=== PATIENT | male | born 1955 | race Caucasian/White ===

== ENCOUNTER 2016-12-10 14:51 | Inpatient (IN) | payer MEDICARE ==
[~2016-12-10] VITALS: Ht 200.7 cm; Wt 101.0 kg
[2016-12-10] VITALS (7 sets, daily range): BP systolic 88–116; BP diastolic 54–67; PULSE 70–92; RESP 20–22; TEMP 97.8–102.4; O2SAT 9–99
[~2016-12-10 14:51] MED LIST: APIX5TAB PO; BUME2TAB PO; CENTTAB PO; CEPH-460 PO; DIAZ10TA PO; DIGO0.12 PO; FERR1TAB58 PO; GABA300C5 PO; LACT10SO27; METO5TAB3 PO; MILKSUS PO; OXYC15TA PO; POTA-243 PO; SPIR25TA PO; STOO100C; ZOFR4TAB3 SL
--- NOTE | 2016-12-10 15:02 | PD ---
HPI Chief Complaint: altered mental status Time Seen by Provider: 15:02 Travel History International Travel<30 days: No Contact w/Intl Traveler<30days: No Traveled to known affect area: No History of Present Illness HPI 60-year-old male came to the emergency room brought by EMS for confusion/ altered mental status. Patient being confused is unable to give the exact onset of his symptoms. He is not a reliable historian. His GCS is 13. Patient is denying of any pain anywhere. His temperature was 102.5 rectally. I have very limited history at this point. He was found by the police in a parking lot acting confused. [facility] Past Medical History Narrative Medical List of his past medical, surgical, social and family history is reviewed from the nursing note. Arthritis: Yes Anxiety: Yes Depression: Yes Heart Rhythm Problems: Yes (chronic A trial fibrillation) Cardiovascular Problems: Yes Congestive Heart Failure: Yes COPD: Yes Cerebrovascular Accident: Yes (SAH, SDH this visit) Diminished Hearing: No Gastrointestinal Disorders: Yes (polyp, GI bleed r/t polyp removal) GERD: Yes Headaches: Yes Hypertension: Yes Musculoskeletal: Yes (degenerative joint disease, chronic knee pain) Myocardial Infarction: Yes Pneumonia: Yes Seizures: Yes Past Surgical History Abdominal Surgery: Yes (umbilical hernia repair, polyp removal) Cardiac Surgery: No Ear Surgery: No Endocrine Surgery: No Eye Surgery: No Genitourinary Surgery: No Gynecologic Surgery: No Oral Surgery: No Pacemaker: No Thoracic Surgery: No Social History Alcohol Use: No (DENIES) Tobacco Use: Yes Substance Use: No Allergies-Medications (Allergen,Severity, Reaction): Coded Allergies: diphenhydramine (Verified Allergy, Severe, HIVES, 12/10/16) PT STATES HE IS NOT ALLERGIC benazepril (Verified Allergy, Unknown, 12/10/16) UNKNOWN captopril (Verified Allergy, Unknown, 12/10/16) enalaprilat (Verified Allergy, Unknown, 12/10/16) fosinopril (Verified Allergy, Unknown, 12/10/16) lisinopril (Verified Allergy, Unknown, 12/10/16) naproxen (Verified Allergy, Unknown, 12/10/16) quinapril (Verified Allergy, Unknown, 12/10/16) strawberry (Verified Allergy, Unknown, 12/10/16) morphine (Verified Adverse Reaction, Intermediate, N/V, 12/10/16) pentazocine (Verified Adverse Reaction, Intermediate, N/V, 12/10/16) caffeine (Verified Adverse Reaction, Unknown, 12/10/16) Comments List of his allergies reviewed from the nursing note. Reported Meds & Prescriptions Reported Meds & Active Scripts Active Reported Spironolactone 25 Mg Tab 25 Mg PO DAILY Oxycodone (Oxycodone HCl) 15 Mg Tab 15 Mg PO Q6H PRN Metolazone 5 Mg Tab 5 Mg PO MON/WED/THU Klor-Con 10 (Potassium Chloride) 10 Meq Tab 10 Meq PO BID Gabapentin 300 Mg Cap 300 Mg PO BID Eliquis (Apixaban) 5 Mg Tab 5 Mg PO BID Digoxin 0.125 Mg Tab 0.125 Mg PO DAILY Diazepam 10 Mg Tab 10 Mg PO TID PRN Bumetanide 2 Mg Tab 2 Mg PO BID Narrative Medication List of his home medications reviewed from the nursing note. Review of Systems ROS Limitations: Altered Mental Status Except as stated in HPI: all other systems reviewed are Neg General / Constitutional: Positive: Fever Neurologic: Positive: Change in Mentation Physical Exam Narrative GENERAL: Awake, confused, moderate distress SKIN: Focused skin assessment warm/dry. HEAD: Atraumatic. Normocephalic. EYES: Pupils equal and round. No scleral icterus. No injection or drainage. ENT: No nasal bleeding or discharge. Dry mucous membrane and coated tongue NECK: Trachea midline. No JVD. CARDIOVASCULAR: Regular rate and rhythm. No murmur appreciated. RESPIRATORY: No accessory muscle use. Clear to auscultation. Breath sounds equal bilaterally. GASTROINTESTINAL: Abdomen soft, non-tender, nondistended. Hepatic and splenic margins not palpable. MUSCULOSKELETAL: No obvious deformities. No clubbing. No cyanosis. No edema. NEUROLOGICAL: Awake and confused, GCS of 13. No obvious cranial nerve deficits. Motor grossly within normal limits. Normal speech. PSYCHIATRIC: Appropriate mood and affect; insight and judgment normal. Data Data Last Documented VS Vital Signs Date Time Temp Pulse Resp B/P (MAP) Pulse Ox O2 Delivery O2 Flow Rate FiO2 12/10/16 16:32 20 12/10/16 16:31 102.0 70 100/61 (74) 98 Nasal Cannula 3.00 Orders Orders Electrocardiogram (12/10/16 ) Complete Blood Count With Diff (12/10/16 15:18) Comprehensive Metabolic Panel (12/10/16 15:18) Prothrombin Time / Inr (Pt) (12/10/16 15:18) Lactic Acid Sepsis Protocol (12/10/16 15:18) Urinalysis - C+S If Indicated (12/10/16 15:18) Blood Culture (12/10/16 15:18) Chest, Single Ap (12/10/16 15:18) Blood Glucose (12/10/16 15:18) Ecg Monitoring (12/10/16:18) Iv Access Insert/Monitor (12/10/16 15:18) Oximetry (12/10/16 15:18) Oxygen Administration (12/10/16 15:18) Ct Brain W/O Iv Contrast(Rout) (12/10/16 15:18) Piperacil-Tazo 4.5 Gm Premix (Zosyn 4.5 (12/10/16 15:18) Vancomycin Inj (Vancomycin Inj) (12/10/16 15:18) Acetaminophen Supp (Tylenol Supp) (12/10/16 15:30) Sodium Chlor 0.9% 1000 Ml Inj (Ns 1000 M (12/10/16 15:30) Sodium Chlor 0.9% 1000 Ml Inj (Ns 1000 M (12/10/16 15:30) Sodium Chlor 0.9% 1000 Ml Inj (Ns 1000 M (12/10/16 15:30) Digoxin (12/10/16 15:26) Troponin I (12/10/16 15:27) Urinary Catheter Insert/Apply (12/10/16 16:03) Apixaban (Eliquis) (12/10/16 21:00) Bumetanide (Bumetanide) (12/10/16 21:00) Digoxin (Lanoxin) (12/11/16 09:00) Potassium Chloride (Kcl) (12/10/16 21:00) Spironolactone (Aldactone) (12/11/16 09:00) Admit Order (Ed Use Only) (12/10/16 17:14) Metolazone (Zaroxolyn) (12/12/16 09:00) Labs Laboratory Tests Test 12/10/16 15:34 12/10/16 15:35 12/10/16 15:50 White Blood Count 8.4 TH/MM3 Red Blood Count 3.76 MIL/MM3 Hemoglobin 12.2 GM/DL Hematocrit 36.4 % Mean Corpuscular Volume 96.8 FL Mean Corpuscular Hemoglobin 32.6 PG Mean Corpuscular Hemoglobin Concent 33.7 % Red Cell Distribution Width 14.1 % Platelet Count 163 TH/MM3 Mean Platelet Volume 8.7 FL Neutrophils (%) (Auto) 82.0 % Lymphocytes (%) (Auto) 8.9 % Monocytes (%) (Auto) 6.8 % Eosinophils (%) (Auto) 2.0 % Basophils (%) (Auto) 0.3 % Neutrophils # (Auto) 6.9 TH/MM3 Lymphocytes # (Auto) 0.7 TH/MM3 Monocytes # (Auto) 0.6 TH/MM3 Eosinophils # (Auto) 0.2 TH/MM3 Basophils # (Auto) 0.0 TH/MM3 CBC Comment DIFF FINAL Differential Comment Prothrombin Time 12.8 SEC Prothromb Time International Ratio 1.2 RATIO Blood Urea Nitrogen 22 MG/DL Creatinine 1.15 MG/DL Random Glucose 106 MG/DL Total Protein 6.9 GM/DL Albumin 3.1 GM/DL Calcium Level 8.3 MG/DL Alkaline Phosphatase 97 U/L Aspartate Amino Transf (AST/SGOT) 21 U/L Alanine Aminotransferase (ALT/SGPT) 20 U/L Total Bilirubin 0.7 MG/DL Sodium Level 139 MEQ/L Potassium Level 3.6 MEQ/L Chloride Level 100 MEQ/L Carbon Dioxide Level 33.1 MEQ/L Anion Gap 6 MEQ/L Estimat Glomerular Filtration Rate 65 ML/MIN Troponin I 0.02 NG/ML B-Type Natriuretic Peptide 186 PG/ML Digoxin Level 1.2 NG/ML Lactic Acid Level 2.1 mmol/L Urine Color YELLOW Urine Turbidity CLEAR Urine pH 6.0 Urine Specific [place] 1.008 Urine Protein NEG mg/dL Urine Glucose (UA) NEG mg/dL Urine Ketones NEG mg/dL Urine Occult Blood NEG Urine Nitrite NEG Urine Bilirubin NEG Urine Urobilinogen LESS THAN 2.0 MG/DL Urine Leukocyte Esterase NEG Urine WBC 4 /hpf Urine Hyaline Casts 7 /lpf Microscopic Urinalysis Comment CATH-CULT NOT IND MDM Medical Decision Making Medical Screen Exam Complete: Yes Emergency Medical Condition: Yes Medical Record Reviewed: Yes Interpretation(s) Twelve-lead EKG was reviewed by me. Atrial fibrillation, right axis deviation, lateral and inferior T-wave inversion and depression, minimal high lateral ST elevation. Rate of 95 bpm. Differential Diagnosis Sepsis, UTI, pneumonia, dehydration Narrative Course 5 PM blood test results of back. Patient has left shift and his CBC. Lactic acid is slightly elevated. Chest x-ray suggestive of by basilar infiltrate. Patient was started on antibiotic and fluid as per the sepsis protocol. I've admitted him to the hospitalist at this point. Critical Care Narrative Aggregate critical care time was 45 minutes. Time to perform other separately billable procedures was not included in the critical care time. My time did not include minutes spent treating any other patients simultaneously or on activities that did not directly contribute to the patient's treatment. The services I provided to this patient were to treat and/or prevent clinically significant deterioration that could result in: Sepsis, sepsis protocol, pneumonia I provided critical care services requiring my management, as noted below: Chart data review, documentation time, medication orders and management, vital sign assessments/reviewing monitor data, ordering and reviewing lab tests, ordering and interpreting/reviewing x-rays and diagnostic studies, care of the patient and discussion of the patient with the admitting physicians. Sepsis Criteria SIRS Criteria (2 or more): Temp > 100.9 or < 96.8 Severe Sepsis (+one): Lactate >2 Diagnosis Primary Impression: Sepsis Qualified Codes: A41.9 - Sepsis, unspecified organism Additional Impression: Pneumonia Qualified Codes: J18.9 - Pneumonia, unspecified organism Admitting Information Admitting Physician Requests: Floyd Lee MD Dec 10, 2016 15:02
[2016-12-10] MEDS ORDERED: VANCOMYCIN INJ 1,000 MG in SODIUM CHLOR 0.9% 250 ML INJ 250 ML IV STA (15:18)
[2016-12-10] MEDS ORDERED: PIPERACIL-TAZO 4.5 GM PREMIX 100 ML IV STA (15:18)
[2016-12-10] MEDS ORDERED: ACETAMINOPHEN 650 MG SUPP RECTAL ONE (15:30)
[2016-12-10] MEDS ORDERED: SODIUM CHLOR 0.9% 1000 ML INJ 1,000 ML IV ONE ×3 (15:30)
[2016-12-10 15:49] LABS: AUTOMATED NEUTROPHIL # 6.9 TH/MM3 (1.8-7.7); BASOPHIL % 0.3 % (0.0-2.0); EOSINOPHIL # 0.2 TH/MM3 (0-0.4); HEMATOCRIT 36.4 % (39.0-51.0); HEMO FLAGS DIFF FINAL; LYMPH % 8.9 % (9.0-44.0); LYMPHOCYTE # 0.7 TH/MM3 (1.0-4.8); MEAN CELL VOLUME 96.8 FL (80.0-100.0); MEAN CORPUSCULAR HEMOGLOBIN 32.6 PG (27.0-34.0); MEAN CORPUSCULAR HGB CONC 33.7 % (32.0-36.0); MONO % 6.8 % (0.0-8.0); PLATELET COUNT 163 TH/MM3 (150-450); RED BLOOD COUNT 3.76 MIL/MM3 (4.50-5.90); RED CELL DISTRIBUTION WIDTH 14.1 % (11.6-17.2); WHITE BLOOD COUNT 8.4 TH/MM3 (4.0-11.0)
[2016-12-10 15:58] LABS: INTERNATIONAL NORMALIZED RATIO 1.2 RATIO; PROTHROMBIN TIME - PATIENT 12.8 SEC (9.8-11.6)
--- NOTE | 2016-12-10 16:08 | RADRPT ---
EXAM DATE/TIME: 12/10/2016 15:40 [facility] COMPARISON: CHEST SINGLE AP, January 30, 2016, 13:46. INDICATIONS : Short of breath. MEDICAL HISTORY : atrial fibrillation SURGICAL HISTORY : defibrillator ENCOUNTER: Initial ACUITY: 1 day PAIN SCORE: 0/10 LOCATION: Bilateral chest FINDINGS: A single portable frontal view the chest shows moderate cardiomegaly. Bibasilar parenchymal consolida tions more pronounced on the right. No effusions. Left sided pacer device. Mild scoliotic curvature o f the spine. Advanced osteoarthritis of the shoulders. CONCLUSION: 1. Cardiomegaly with bibasilar pulmonary consolidations Guanako Cutler Jr., MD on December 10, 2016 at 16:06 Board Certified Radiologist. This report was verified electronically.
[2016-12-10 16:28] LABS: ALT (GPT) 20 U/L (12-78); ANION GAP 6 MEQ/L (5-15); AST (GOT) 21 U/L (15-37); BICARBONATE 33.1 MEQ/L (21.0-32.0); BLOOD UREA NITROGEN 22 MG/DL (7-18); CHLORIDE 100 MEQ/L (98-107); GLOMERULAR FILTRATION RATE 65 ML/MIN (>89); POTASSIUM 3.6 MEQ/L (3.5-5.1); SODIUM (NA) 139 MEQ/L (136-145)
[2016-12-10 16:30] LABS: ALKALINE PHOSPHATASE 97 U/L (45-117); TOTAL BILIRUBIN ADULT 0.7 MG/DL (0.2-1.0)
[2016-12-10 16:31] LABS: BLOOD, URINE NEG (NEG); COMMENT (UR) CATH-CULT NOT IND; CULTURE IF INDICATED CATH CULTURE NOT IND; GLUCOSE,URINE NEG (NEG); HYALINE CAST, URINE 7 /lpf (RARE); KETONE, URINE NEG (NEG); NITRITE,URINE NEG (NEG); URINE COLOR YELLOW (YELLW/STRAW)
--- NOTE | 2016-12-10 16:41 | RADRPT ---
EXAM DATE/TIME: 12/10/2016 16:11 [facility] COMPARISON: CT BRAIN W/O CONTRAST, November 02, 2013, 12:02. INDICATIONS : Altered mental status. RADIATION DOSE: 56.39 CTDIvol (mGy) MEDICAL HISTORY : Seizures. Cardiovascular disease Hypertension. SURGICAL HISTORY : None. ENCOUNTER: Initial ACUITY: 1 day PAIN SCALE: 0/10 LOCATION: cranial TECHNIQUE: Multiple contiguous axial images were obtained of the head. Using automated exposure control and adj ustment of the mA and/or kV according to patient size, radiation dose was kept as low as reasonably a chievable to obtain optimal diagnostic quality images. DICOM format image data is available electro nically for review and comparison. FINDINGS: There continues to be a large arachnoid cyst in the posterior fossa with mass effect and midline shif t measuring 7 CM by 3.3 CM displacing the fourth ventricle to the right unchanged in 2013. No acute h emorrhage is seen. No ventriculomegaly is evident. CONCLUSION: 1. No evidence of acute intracranial pathology. No masses are identified. 2. Stable arachnoid cyst 1. Dewey Perla MD on December 10, 2016 at 16:37 Board Certified Radiologist. This report was verified electronically.
[2016-12-10] MEDS ORDERED: SODIUM CHLORIDE 0.9% FLUSH 10 ML FLUSH IV FLUSH PRN (17:30)
[2016-12-10] MEDS ORDERED: SENNOSIDES 8.6 MG TAB PO PRN (17:30)
[2016-12-10] MEDS ORDERED: LACTULOSE SYRUP 20 GM/30 ML CUP PO PRN (17:30)
[2016-12-10] MEDS ORDERED: BISACODYL 10 MG SUPP RECTAL PRN (17:30)
[2016-12-10] MEDS ORDERED: MAGNESIUM HYDROXIDE SUSP 30 ML CUP PO PRN (17:30)
[2016-12-10] MEDS ORDERED: NALOXONE HCL 0.4 MG/ML AMP IV PUSH PRN (17:30)
[2016-12-10] MEDS ORDERED: ACETAMINOPHEN 325 MG TAB PO PRN (17:30)
[2016-12-10] MEDS ORDERED: Vancomycin Consult Pharmacy 1 EA OTHER SCH (17:30)
[2016-12-10] MEDS ORDERED: ONDANSETRON HCL 4 MG/2 ML VIAL IVP PRN (17:30)
[2016-12-10 17:42] LABS: LACTIC ACID GHOST NOT REPORTABLE
--- NOTE | 2016-12-10 19:10 | HHI.HP ---
HPI Service CP Hospitalists Primary Care Physician Unknown Admission Diagnosis sepsis, pneumonia, dehydration Chief Complaint: confusion Travel History International Travel<30 Days: No Contact w/Intl Traveler <30 Da: No Traveled to Known Affected Are: No Sepsis Criteria SIRS Criteria (2 or more): Temp > 100.9 or < 96.8, WBC > 56601, < 4000 or > 10 % bands Criteria Outcome: Meets SIRS criteria History of Present Illness 60 y/o male brought in by police as they found him in a parking lot confused . Patient unable to tell anything about what has been happening did have rectal temp >102 and had chest xray suggestive bilateral infiltrates consistent with pneumonia and did meet SIRS criteria ,initial lactate 2 recheck normal. Patient started on vancomycin and zosyn. Does have history of chf,atrial fib chronic pain and is on oxycodone and valium which can contribute to his confusion also hx neuropathy . Review of Systems ROS Limitations: Altered Mental Status Past Family Social History Past Medical History atrial fib,chf copd,HX SAH hx GERD HX [place] hx seizure in past pacer for SSS Past Surgical History umbilical hernia and polyp surgery,pacer Reported Medications Spironolactone 25 Mg Tab 25 Mg PO DAILY Oxycodone (Oxycodone HCl) 15 Mg Tab 15 Mg PO Q6H PRN Metolazone 5 Mg Tab 5 Mg PO MON/THU/FRI Klor-Con 10 (Potassium Chloride) 10 Meq Tab 10 Meq PO BID Gabapentin 300 Mg Cap 300 Mg PO BID Eliquis (Apixaban) 5 Mg Tab 5 Mg PO BID Digoxin 0.125 Mg Tab 0.125 Mg PO DAILY Diazepam 10 Mg Tab 10 Mg PO TID PRN Bumetanide 2 Mg Tab 2 Mg PO BID Allergies: Coded Allergies: diphenhydramine (Verified Allergy, Severe, HIVES, 12/10/16) PT STATES HE IS NOT ALLERGIC benazepril (Verified Allergy, Unknown, 12/10/16) UNKNOWN captopril (Verified Allergy, Unknown, 12/10/16) enalaprilat (Verified Allergy, Unknown, 12/10/16) fosinopril (Verified Allergy, Unknown, 12/10/16) lisinopril (Verified Allergy, Unknown, 12/10/16) naproxen (Verified Allergy, Unknown, 12/10/16) quinapril (Verified Allergy, Unknown, 12/10/16) strawberry (Verified Allergy, Unknown, 12/10/16) morphine (Verified Adverse Reaction, Intermediate, N/V, 12/10/16) pentazocine (Verified Adverse Reaction, Intermediate, N/V, 12/10/16) caffeine (Verified Adverse Reaction, Unknown, 12/10/16) Social History positive smoker Physical Exam Vital Signs Vital Signs Date Time Temp Pulse Resp B/P (MAP) Pulse Ox O2 Delivery O2 Flow Rate FiO2 12/10/16 18:37 97.8 89 20 102/67 (79) 98 Nasal Cannula 3.00 12/10/16 17:42 101.2 80 20 98/66 (77) 96 Nasal Cannula 3.00 12/10/16 16:32 20 12/10/16 16:31 102.0 70 20 100/61 (74) 98 Nasal Cannula 3.00 12/10/16 15:30 96 Nasal Cannula 3.00 12/10/16 15:30 20 96 Nasal Cannula 3.00 12/10/16 15:00 92 22 96 Nasal Cannula 3.00 12/10/16 14:59 102.4 92 20 116/60 (78) 96 Physical Exam GENERAL: This is a well-nourished, well-developed patient, in no apparent distress. SKIN: No rashes, ecchymoses or lesions. Cool and dry. HEAD: Atraumatic. Normocephalic. No temporal or scalp tenderness. EYES: Pupils equal round and reactive. Extraocular motions intact. No scleral icterus. No injection or drainage. ENT: Nose without bleeding, purulent drainage or septal hematoma. Throat without erythema, tonsillar hypertrophy or exudate. Uvula midline. Airway patent. NECK: Trachea midline. No JVD or lymphadenopathy. Supple, nontender, no meningeal signs. CARDIOVASCULAR: IRREG rate and rhythm without murmurs, gallops, or rubs. RESPIRATORY: . Decrease breath sounds with rales bilateral bases GASTROINTESTINAL: Abdomen soft, non-tender, nondistended. No hepato-splenomegaly , or palpable masses. No guarding. MUSCULOSKELETAL: Extremities without clubbing, cyanosis, or edema. No joint tenderness, effusion, or edema noted. No calf tenderness. Negative Homans sign bilaterally. NEUROLOGICAL: Awake and alert. Cranial nerves II through XII intact. Motor and sensory grossly within normal limits. Five out of 5 muscle strength in all muscle groups. Normal speech. Laboratory Laboratory Tests Test 12/10/16 15:34 12/10/16 15:35 12/10/16 15:50 12/10/16 17:35 White Blood Count 8.4 Red Blood Count 3.76 Hemoglobin 12.2 Hematocrit 36.4 Mean Corpuscular Volume 96.8 Mean Corpuscular Hemoglobin 32.6 Mean Corpuscular Hemoglobin Concent 33.7 Red Cell Distribution Width 14.1 Platelet Count 163 Mean Platelet Volume 8.7 Neutrophils (%) (Auto) 82.0 Lymphocytes (%) (Auto) 8.9 Monocytes (%) (Auto) 6.8 Eosinophils (%) (Auto) 2.0 Basophils (%) (Auto) 0.3 Neutrophils # (Auto) 6.9 Lymphocytes # (Auto) 0.7 Monocytes # (Auto) 0.6 Eosinophils # (Auto) 0.2 Basophils # (Auto) 0.0 CBC Comment DIFF FINAL Differential Comment Prothrombin Time 12.8 Prothromb Time International Ratio 1.2 Blood Urea Nitrogen 22 Creatinine 1.15 Random Glucose 106 Total Protein 6.9 Albumin 3.1 Calcium Level 8.3 Alkaline Phosphatase 97 Aspartate Amino Transf (AST/SGOT) 21 Alanine Aminotransferase (ALT/SGPT) 20 Total Bilirubin 0.7 Sodium Level 139 Potassium Level 3.6 Chloride Level 100 Carbon Dioxide Level 33.1 Anion Gap 6 Estimat Glomerular Filtration Rate 65 Digoxin Level 1.2 Lactic Acid Level 2.1 0.9 Urine Color YELLOW Urine Turbidity CLEAR Urine pH 6.0 Urine Specific [place] 1.008 Urine Protein NEG Urine Glucose (UA) NEG Urine Ketones NEG Urine Occult Blood NEG Urine Nitrite NEG Urine Bilirubin NEG Urine Urobilinogen LESS THAN 2.0 Urine Leukocyte Esterase NEG Urine WBC 4 Urine Hyaline Casts 7 Microscopic Urinalysis Comment CATH-CULT NOT IND Date/Time Source Procedure Growth Status 12/10/16 15:35 Blood Peripheral Aerobic Blood Culture Pending Received 12/10/16 15:35 Blood Peripheral Anaerobic Blood Culture Pending Received Result Diagram: 12/10/16 1534 12/10/16 1534 Imaging Last [address] 12/10/16 1518 Signed Impressions: Service Date/Time: Thursday, December 10, 2016 16:11 - CONCLUSION: 1. No evidence of acute intracranial pathology. No masses are identified. 2. Stable arachnoid cyst 1. Dewey Perla MD Chest X-Ray 12/10/16 1518 Signed Impressions: Service Date/Time: Saturday, December 10, 2016 15:40 - CONCLUSION: 1. Cardiomegaly with bibasilar pulmonary consolidations Guanako Cutler Jr., MD Course started on vancomysin and zosyn and given some IV fluid Septic Shock Reassessment Heart: Irregular Lungs: Crackles Skin: Warm Peripheral Pulses: Bounding Right Radial Bounding Left Radial Capillary Refill: Brisk Caprini VTE Risk Assessment Caprini VTE Risk Assessment: Mod/High Risk (score >= 2) Caprini Risk Assessment Model Point Value = 1 Point Value = 2 Point Value = 3 Point Value = 5 Age 41-60 Minor surgery BMI > 25 kg/m2 Swollen legs Varicose veins or History of unexplained or recurrent spontaneous Oral contraceptives or hormone replacement Sepsis (< 1 month) Serious lung disease, including pneumonia (< 1 month) Abnormal pulmonary function Acute myocardial infarction Congestive heart failure (< 1 month) History of inflammatory bowel disease Medical patient at bed rest Age 61-74 Arthroscopic surgery Major open surgery (> 45 min) Laparoscopic surgery (> 45 min) Malignancy Confined to bed (> 72 hours) Immobilizing plaster cast Central venous access Age >= 75 History of VTE Family history of VTE Factor V Leiden Prothrombin [id number] Lupus anticoagulant Anticardiolipin antibodies Elevated serum homocysteine Heparin-induced thrombocytopenia Other congenital or acquired thrombophilia Stroke (< 1 month) Elective arthroplasty Hip, pelvis, or leg fracture Acute spinal cord injury (< 1 month) Prophylaxis Regimen Total Risk Factor Score Risk Level Prophylaxis Regimen 0-1 Low Early ambulation 2 Moderate Order ONE of the following: *Sequential Compression Device (SCD) *Heparin 5000 units SQ BID 3-4 Higher Order ONE of the following medications: *Heparin 5000 units SQ TID *Enoxaparin/Lovenox 40 mg SQ daily (WT < 150 kg, CrCl > 30 mL/min) *Enoxaparin/Lovenox 30 mg SQ daily (WT < 150 kg, CrCl > 10-29 mL/min) *Enoxaparin/Lovenox 30 mg SQ BID (WT < 150 kg, CrCl > 30 mL/min) AND/OR *Sequential Compression Device (SCD) 5 or more Highest Order ONE of the following medications: *Heparin 5000 units SQ TID (Preferred with Epidurals) *Enoxaparin/Lovenox 40 mg SQ daily (WT < 150 kg, CrCl > 30 mL/min) *Enoxaparin/Lovenox 30 mg SQ daily (WT < 150 kg, CrCl > 10-29 mL/min) *Enoxaparin/Lovenox 30 mg SQ BID (WT < 150 kg, CrCl > 30 mL/min) AND *Sequential Compression Device (SCD) Assessment and Plan Problem List: (1) Pneumonia ICD Codes: J18.9 - Pneumonia, unspecified organism Status: Acute Plan: bilateral infiltrates on chest xary will continue vancomycin and zosyn for now will follow up labs and xrays add bnp as patient does have hx CHF (2) Sepsis ICD Codes: A41.9 - Sepsis, unspecified organism Status: Acute Plan: initial labs were consistent with sepsis had positive lactate repeat now negative also had temp with left shift on CBC follow up blood cultures (3) Paroxysmal atrial fibrillation ICD Codes: I48.0 - Paroxysmal atrial fibrillation Status: Chronic Plan: on digoxin with normal dig level and on eliquis Assessment and Plan further plan as case progresses and labs rechecked Code Status full Discussed Condition With patient Physician Certification 2 Midnight Certification Type: Admission for Inpatient Services Order for Inpatient Services The services are ordered in accordance with Medicare regulations or non- Medicare payer requirements, as applicable. In the case of services not specified as inpatient-only, they are appropriately provided as inpatient services in accordance with the 2-midnight benchmark. Estimated LOS (days): 3 3 days is the estimated time the patient will need to remain in the hospital, assuming treatment plan goals are met and no additional complications. Post-Hospital Plan: Not yet determined Problem Qualifiers (1) Pneumonia: Qualified Codes: J18.9 - Pneumonia, unspecified organism (2) Sepsis: Qualified Codes: A41.9 - Sepsis, unspecified organism Flash Manning MD Dec 10, 2016 19:10
[2016-12-10] MEDS ORDERED: DIAZEPAM 10 MG TAB PO PRN (19:30)
[2016-12-10] MEDS: PREGABALIN 100 MG CAP PO SCH (20:54)
[2016-12-10] MEDS: POTASSIUM CHLORIDE 10 MEQ CONTROLLED RELEASE TAB PO SCH (20:54)
[2016-12-10] MEDS: DOCUSATE SODIUM 50 MG/SENNA 8.6 MG TAB PO SCH (20:55)
[2016-12-10] MEDS: APIXABAN 5 MG TABLET PO SCH (20:55)
[2016-12-10] MEDS: BUMETANIDE 1 MG TAB PO SCH (20:56)
[2016-12-10] MEDS ORDERED: GABAPENTIN 300 MG CAP PO SCH (21:00)
[2016-12-10] MEDS: VANCOMYCIN 1,500 MG/NS 500 ML IV SCH ×2 (22:33)
[2016-12-11] VITALS (7 sets, daily range): BP systolic 85–106; BP diastolic 56–68; PULSE 52–60; RESP 18–20; TEMP 96.4–97.7; O2SAT 95–99
[2016-12-11] MEDS: SODIUM CHLORIDE 0.9% FLUSH 10 ML FLUSH IV FLUSH SCH ×2 (00:42→09:00)
[2016-12-11] MEDS: PIPERACIL-TAZO 3.375 GM PREMIX 50 ML IV SCH ×2 (00:42→06:40)
[2016-12-11] MEDS: PREGABALIN 100 MG CAP PO SCH (06:00)
[2016-12-11 07:29] LABS: AUTOMATED NEUTROPHIL # 6.3 TH/MM3 (1.8-7.7); BASOPHIL % 0.3 % (0.0-2.0); EOSINOPHIL # 0.2 TH/MM3 (0-0.4); EOSINOPHIL % 2.3 % (0.0-4.0); HEMATOCRIT 34.8 % (39.0-51.0); HEMO FLAGS DIFF FINAL; LYMPH % 12.1 % (9.0-44.0); MEAN CELL VOLUME 98.6 FL (80.0-100.0); MEAN CORPUSCULAR HEMOGLOBIN 33.1 PG (27.0-34.0); MEAN CORPUSCULAR HGB CONC 33.6 % (32.0-36.0); MONO % 7.7 % (0.0-8.0); NEUT % 77.6 % (16.0-70.0); PLATELET COUNT 160 TH/MM3 (150-450); RED BLOOD COUNT 3.53 MIL/MM3 (4.50-5.90); RED CELL DISTRIBUTION WIDTH 14.4 % (11.6-17.2); WHITE BLOOD COUNT 8.1 TH/MM3 (4.0-11.0)
[2016-12-11 07:42] LABS: ALT (GPT) 21 U/L (12-78); ANION GAP 4 MEQ/L (5-15); AST (GOT) 22 U/L (15-37); BICARBONATE 35.7 MEQ/L (21.0-32.0); BLOOD UREA NITROGEN 20 MG/DL (7-18); CHLORIDE 100 MEQ/L (98-107); GLOMERULAR FILTRATION RATE 74 ML/MIN (>89); POTASSIUM 3.4 MEQ/L (3.5-5.1); SODIUM (NA) 140 MEQ/L (136-145)
[2016-12-11 07:45] LABS: ALKALINE PHOSPHATASE 93 U/L (45-117); TOTAL BILIRUBIN ADULT 0.9 MG/DL (0.2-1.0)
[2016-12-11] MEDS: APIXABAN 5 MG TABLET PO SCH (09:00)
[2016-12-11] MEDS ORDERED: DIGOXIN 0.125 MG TAB PO SCH (09:00)
[2016-12-11] MEDS: BUMETANIDE 1 MG TAB PO SCH (09:00)
[2016-12-11] MEDS ORDERED: SPIRONOLACTONE 25 MG TAB PO SCH (09:00)
[2016-12-11] MEDS: POTASSIUM CHLORIDE 10 MEQ CONTROLLED RELEASE TAB PO SCH (09:00)
[2016-12-11] MEDS: DOCUSATE SODIUM 50 MG/SENNA 8.6 MG TAB PO SCH (09:00)
[2016-12-11] MEDS: VANCOMYCIN 1,500 MG/NS 500 ML IV SCH ×2 (10:00)
--- NOTE | 2016-12-11 12:58 | HHI.PR ---
Subjective Remarks Patient states, "I want out of here quick." Patient A&O, refusing further medical care. Objective Vitals Vital Signs Date Time Temp Pulse Resp B/P (MAP) Pulse Ox O2 Delivery O2 Flow Rate FiO2 12/11/16 12:00 96.9 60 20 95/62 (73) 95 12/11/16 08:00 97.2 60 19 94/60 (71) 99 12/11/16 06:00 96.4 60 18 90/60 (70) 99 12/11/16 04:58 85/56 (66) 12/11/16 04:00 97.1 60 20 106/68 (81) 98 12/11/16 01:19 52 18 99/58 (72) 98 12/11/16 00:00 97.7 59 20 88/59 (69) 98 12/10/16 21:04 71 20 104/59 (74) 99 12/10/16 20:00 99.5 73 20 88/54 (65) 97 12/10/16 18:37 97.8 89 20 102/67 (79) 98 Nasal Cannula 3.00 12/10/16 17:42 101.2 80 20 98/66 (77) 96 Nasal Cannula 3.00 12/10/16 16:32 20 12/10/16 16:31 102.0 70 20 100/61 (74) 98 Nasal Cannula 3.00 12/10/16 15:30 96 Nasal Cannula 3.00 12/10/16 15:30 20 96 Nasal Cannula 3.00 12/10/16 15:00 92 22 96 Nasal Cannula 3.00 12/10/16 14:59 102.4 92 20 116/60 (78) 96 12/11/16 12/11/16 12/12/16 15:00 23:00 07:00 Intake Total 170 ml Output Total 2100 ml Balance -1930 ml Intake Oral 120 ml IV Total 50 ml Output Urine Total 2100 ml Result Diagram: 12/11/1660512/11/16605 Other Results Laboratory Tests Test 12/10/16 15:34 12/10/16 15:35 12/10/16 15:50 12/10/16 17:35 White Blood Count 8.4 TH/MM3 Red Blood Count 3.76 MIL/MM3 Hemoglobin 12.2 GM/DL Hematocrit 36.4 % Mean Corpuscular Volume 96.8 FL Mean Corpuscular Hemoglobin 32.6 PG Mean Corpuscular Hemoglobin Concent 33.7 % Red Cell Distribution Width 14.1 % Platelet Count 163 TH/MM3 Mean Platelet Volume 8.7 FL Neutrophils (%) (Auto) 82.0 % Lymphocytes (%) (Auto) 8.9 % Monocytes (%) (Auto) 6.8 % Eosinophils (%) (Auto) 2.0 % Basophils (%) (Auto) 0.3 % Neutrophils # (Auto) 6.9 TH/MM3 Lymphocytes # (Auto) 0.7 TH/MM3 Monocytes # (Auto) 0.6 TH/MM3 Eosinophils # (Auto) 0.2 TH/MM3 Basophils # (Auto) 0.0 TH/MM3 CBC Comment DIFF FINAL Differential Comment Prothrombin Time 12.8 SEC Prothromb Time International Ratio 1.2 RATIO Blood Urea Nitrogen 22 MG/DL Creatinine 1.15 MG/DL Random Glucose 106 MG/DL Total Protein 6.9 GM/DL Albumin 3.1 GM/DL Calcium Level 8.3 MG/DL Alkaline Phosphatase 97 U/L Aspartate Amino Transf (AST/SGOT) 21 U/L Alanine Aminotransferase (ALT/SGPT) 20 U/L Total Bilirubin 0.7 MG/DL Sodium Level 139 MEQ/L Potassium Level 3.6 MEQ/L Chloride Level 100 MEQ/L Carbon Dioxide Level 33.1 MEQ/L Anion Gap 6 MEQ/L Estimat Glomerular Filtration Rate 65 ML/MIN Troponin I 0.02 NG/ML B-Type Natriuretic Peptide 186 PG/ML Digoxin Level 1.2 NG/ML Lactic Acid Level 2.1 mmol/L 0.9 mmol/L Urine Color YELLOW Urine Turbidity CLEAR Urine pH 6.0 Urine Specific [place] 1.008 Urine Protein NEG mg/dL Urine Glucose (UA) NEG mg/dL Urine Ketones NEG mg/dL Urine Occult Blood NEG Urine Nitrite NEG Urine Bilirubin NEG Urine Urobilinogen LESS THAN 2.0 MG/DL Urine Leukocyte Esterase NEG Urine WBC 4 /hpf Urine Hyaline Casts 7 /lpf Microscopic Urinalysis Comment CATH-CULT NOT IND Test 12/10/16 19:24 12/11/16 06:06 Lactic Acid Level 0.8 mmol/L White Blood Count 8.1 TH/MM3 Red Blood Count 3.53 MIL/MM3 Hemoglobin 11.7 GM/DL Hematocrit 34.8 % Mean Corpuscular Volume 98.6 FL Mean Corpuscular Hemoglobin 33.1 PG Mean Corpuscular Hemoglobin Concent 33.6 % Red Cell Distribution Width 14.4 % Platelet Count 160 TH/MM3 Mean Platelet Volume 9.1 FL Neutrophils (%) (Auto) 77.6 % Lymphocytes (%) (Auto) 12.1 % Monocytes (%) (Auto) 7.7 % Eosinophils (%) (Auto) 2.3 % Basophils (%) (Auto) 0.3 % Neutrophils # (Auto) 6.3 TH/MM3 Lymphocytes # (Auto) 1.0 TH/MM3 Monocytes # (Auto) 0.6 TH/MM3 Eosinophils # (Auto) 0.2 TH/MM3 Basophils # (Auto) 0.0 TH/MM3 CBC Comment DIFF FINAL Differential Comment Blood Urea Nitrogen 20 MG/DL Creatinine 1.02 MG/DL Random Glucose 86 MG/DL Total Protein 6.3 GM/DL Albumin 2.8 GM/DL Calcium Level 8.4 MG/DL Alkaline Phosphatase 93 U/L Aspartate Amino Transf (AST/SGOT) 22 U/L Alanine Aminotransferase (ALT/SGPT) 21 U/L Total Bilirubin 0.9 MG/DL Sodium Level 140 MEQ/L Potassium Level 3.4 MEQ/L Chloride Level 100 MEQ/L Carbon Dioxide Level 35.7 MEQ/L Anion Gap 4 MEQ/L Estimat Glomerular Filtration Rate 74 ML/MIN Imaging Last [address] 12/10/16 1518 Signed Impressions: Service Date/Time: Saturday, December 10, 2016 16:11 - CONCLUSION: 1. No evidence of acute intracranial pathology. No masses are identified. 2. Stable arachnoid cyst 1. Dewey Perla MD Chest X-Ray 12/10/168 Signed Impressions: Service Date/Time: Saturday, December 10, 2016 15:40 - CONCLUSION: 1. Cardiomegaly with bibasilar pulmonary consolidations Guanako Cutler Jr., MD Objective Remarks Gerneral: Patient A&O in no acute distress refusing further physical exam A/P Problem List: (1) Pneumonia ICD Codes: J18.9 - Pneumonia, unspecified organism Status: Acute Plan: bilateral infiltrates on chest x ray will continue vancomycin and zosyn Patient argumentative and refusing further medical care. Dr. Mack's and myself recommend patient stay in the hospital to complete treatment Patient is currently A&O and wishes to leave AMA Patient Ramy Best has decided to leave the hospital against medical advice. This patient has the capacity to refuse care and understands the risks of leaving, including permanent disability and/or , and has had an opportunity to ask questions about his condition. The patient has been informed that he may return for care at any time, and follow up has been arranged/ advised. (2) Sepsis ICD Codes: A41.9 - Sepsis, unspecified organism Status: Acute Plan: initial labs were consistent with sepsis had positive lactate repeat now negative also had temp with left shift on CBC follow up blood cultures (3) Paroxysmal atrial fibrillation ICD Codes: I48.0 - Paroxysmal atrial fibrillation Status: Chronic Plan: on digoxin with normal dig level and on eliquis Assessment and Plan Patient examined. Assessment and plan formulated with Eva Dill PA-C. I agree with the above. Problem Qualifiers (1) Pneumonia: Qualified Codes: J18.9 - Pneumonia, unspecified organism (2) Sepsis: Qualified Codes: A41.9 - Sepsis, unspecified organism Eva Dill Dec 11, 2016 12:57 Kulwant Harris DO Dec 14, 2016 00:50
--- NOTE | 2016-12-11 14:10 | EKG ---
Date Performed: 12/10/2016 Time Performed: 15:02:38 PTAGE: 60 years EKG: ATRIAL FIBRILLATION INCOMPLETE RIGHT BUNDLE BRANCH BLOCK POSSIBLE RIGHT VENTRICULAR HYPERTR OPHY NONSPECIFIC ST & T-WAVE ABNORMALITY Right axis deviation ABNORMAL ECG PREVIOUS TRACING : 01/30/2016 07.54 Since the prior tracing, the right axis deviation is new. T he nonspecific inferolateral ST-T wave changes are new. Clinical correlation will be important to ass ess the serial changes. DOCTOR: Beronica Cuba Interpretating Date/Time 12/11/2016 14:09:32
[2016-12-12] MEDS ORDERED: METOLAZONE 5 MG TAB PO SCH (09:00)
[2016-12-12] MEDS ORDERED: PHARMACY ORDERED LAB ONE (09:45)
== END 2016-12-11 13:51 | disposition left against medical advice (07) | DRG 871 ==
LOC: NEPE 14:51 → NEDA 17:20 → N07B 18:41
PROVIDERS: ADMIT Hospitalist; ATTEND Hospitalist
DX: A41.9 Sepsis, unspecified organism (principal); J18.9 Pneumonia, unspecified organism; I11.0 Hypertensive heart disease with heart failure; I50.9 Heart failure, unspecified; I48.0 Paroxysmal atrial fibrillation; J44.0 Chronic obstructive pulmonary disease with (acute) lower respiratory infection; F32.9 Major depressive disorder, single episode, unspecified; G89.29 Other chronic pain; F41.9 Anxiety disorder, unspecified; F17.210 Nicotine dependence, cigarettes, uncomplicated; K21.9 Gastro-esophageal reflux disease without esophagitis; Z95.0 Presence of cardiac pacemaker; I25.2 Old myocardial infarction; Z86.73 Personal history of transient ischemic attack (TIA), and cerebral infarction without residual deficits; Z79.01 Long term (current) use of anticoagulants
CPT/HCPCS: 51702; 70450; 71010; 80053; 80162; 81001; 83605; 83880; 84484; 85025; 85610; 87040; 93005; 96365; 96368; J2543; J3370; J7030; J7040; J7050